=== PATIENT | female | born 1930 | race Caucasian/White ===

== ENCOUNTER 2016-08-22 05:02 | Inpatient (IN) | payer MEDICARE, OTHER ==
[~2016-08-22] VITALS: Ht 160 cm; Wt 40.5 kg
[2016-08-22 05:49] LABS: INR 0.97; PROTIME 12.9 Sec (12.2-14.2)
[2016-08-22 05:50] LABS: PARTIAL THROMBOPLASTIN TIME 24.5 Sec (25.0-35.0)
[2016-08-22 05:52] LABS: POTASSIUM 3.9 mmol/L (3.5-5.1)
[2016-08-22 05:54] LABS: ALBUMIN/GLOBULIN RATIO 1.53; BASOPHILS % 0.6 % (0.0-2.0); BILIRUBIN,INDIRECT 0.1 mg/dl (0-1.1); BILIRUBIN,TOTAL 0.1 mg/dl (0.2-1.3); CREATININE 1.06 mg/dl (0.44-1.00); EOSINOPHILS # 0.2 10^3/ul (0.0-0.5); EOSINOPHILS % 4.2 % (0.0-7.0); HEMATOCRIT 30.4 % (37.0-47.0); HEMOGLOBIN 10.1 g/dl (12.0-16.0); LYMPHOCYTES # 0.9 10^3/ul (0.8-2.9); LYMPHOCYTES % 19.9 % (15.0-51.0); MEAN CORPUSCULAR HEMOGLOBIN 33.9 pg (29.0-33.0); MEAN CORPUSCULAR HGB CONC 33.4 g/dl (32.0-37.0); MEAN CORPUSCULAR VOLUME 101.6 fl (82.0-101.0); MEAN PLATELET VOLUME 9.7 fl (7.4-10.4); MONOCYTE # 0.2 10^3/ul (0.3-0.9); MONOCYTES % 5.7 % (0.0-11.0); NEUTROPHILS % 69.6 % (39.0-77.0); PLATELET COUNT 155 10^3/UL (140-440); RED BLOOD COUNT 2.99 10^6/ul (4.20-5.40); RED CELL DISTRIBUTION WIDTH 13.4 % (11.5-14.5); TOTAL PROTEIN 6.6 g/dl (6.1-8.1); UNCORRECTED WBC 4.3 10^3/ul (4.8-10.8); WHITE BLOOD COUNT 4.3 10^3/ul (4.8-10.8)
[2016-08-22 05:55] LABS: CALCIUM 10.2 mg/dl (8.4-10.2)
[2016-08-22 06:03] LABS: CK-MB 1.34 ng/ml (0.0-2.4)
[2016-08-22 06:04] LABS: CONDITION 1; LH ANALYZER COMMENTS 1
[2016-08-22 06:06] LABS: TROPONIN-I 0.017 ng/ml (0.00-0.12)
[2016-08-22 06:07] LABS: TROPONIN-I 0.019 ng/ml (0.00-0.12)
--- NOTE | 2016-08-22 06:16 | RADRPT ---
PROCEDURE: XR Chest. CLINICAL INDICATION: Chest pain TECHNIQUE: An AP view of the chest was obtained. COMPARISON: No prior exam is available for comparison. FINDINGS: There is prominence of the interstitial markings. No pleural effusion or pneumothorax is seen. Th e cardiomediastinal silhouette is mildly enlarged . Calcifications are seen within the aortic arch. The osseous structures demonstrate senescent changes. IMPRESSION: 1. Mild prominence of the interstitial markings, may reflect mild underlying interstitial edema or chronic lung changes. 2. Mild cardiomegaly and aortic atherosclerosis. RPTAT: HH .Radha Lewis MD, MD Date Time Electronically viewed and signed by .Radha Lewis MD, on 08/22/2016 06:15 .G/
[2016-08-22 08:17] LABS: ADD UMIC YES; URINE BILIRUBIN (Dip) NEGATIVE (NEGATIVE); URINE BLOOD (Dip) NEGATIVE (NEGATIVE); URINE COLOR LT. YELLOW (YELLOW); URINE GLUCOSE (Dip) NEGATIVE (NEGATIVE); URINE KETONES (Dip) TRACE (NEGATIVE); URINE LEUKOCYTE ESTERASE (Dip) 1+ (NEGATIVE); URINE NITRITE (Dip) NEGATIVE (NEGATIVE); URINE TOTAL PROTEIN (Dip) NEGATIVE (NEGATIVE); URINE UROBILINOGEN (Dip) 0.2 E.U./dL (0.1-1.0)
[2016-08-22] MEDS ORDERED: ALBU8.5H3 INH (08:18)
[2016-08-22] MEDS ORDERED: AZEL23SP NASAL (08:19)
[2016-08-22] MEDS ORDERED: CHOL100062 PO (08:19)
[2016-08-22] MEDS ORDERED: LORA10TA3 PO (08:20)
[2016-08-22] MEDS ORDERED: MULTI PO (08:20)
[2016-08-22] MEDS ORDERED: NIT4 SL (08:20)
[2016-08-22] MEDS ORDERED: HYDR12.58 PO (08:20)
[2016-08-22] MEDS ORDERED: SIMV40TA2 PO (08:21)
[2016-08-22 08:22] LABS: BARBITURATES NEGATIVE (NEGATIVE); BENZODIAZEPINES NEGATIVE (NEGATIVE); CANNABINOIDS NEGATIVE (NEGATIVE); COCAINE NEGATIVE (NEGATIVE)
[2016-08-22] MEDS ORDERED: LOSA100T7 PO (08:22)
[2016-08-22] MEDS ORDERED: OMEP40CA6 PO (08:22)
[2016-08-22] MEDS ORDERED: METO-448 PO (08:22)
[2016-08-22] MEDS ORDERED: DOCU100C26 PO (08:23)
[2016-08-22] MEDS ORDERED: CALC1CAP9 PO (08:23)
[2016-08-22 08:24] LABS: OPIATES POSITIVE (NEGATIVE)
[2016-08-22 08:24] LABS: ETHANOL < 10.0 mg/dl
[2016-08-22] MEDS ORDERED: ASPI1CPM8 PO (08:24)
[2016-08-22] MEDS ORDERED: ASPI-664 PO (08:24)
[2016-08-22 08:31] LABS: SQUAMOUS EPITHELIAL CELL,UR FEW; URINE RBCS NONE SEEN /HPF (0)
[2016-08-22] MEDS ORDERED: ACET1TAB40 PO (08:31)
[2016-08-22 08:40] LABS: T3 UPTAKE 36.6 % (23.5-40.5)
[2016-08-22] MEDS ORDERED: LORAZEPAM 2 MG INJ IV ONE (09:00)
--- NOTE | 2016-08-22 09:09 | ERA ---
ER Documentation Chief Complaint Date/Time DATE: 08/22/16 TIME: 09:04 Chief Complaint bib ra c/p cp after conflict from her apartment mgr. has multiple complaint HPI 86-year-old female who presents for unknown reasons. At triage it was reported that she had chest pain after a conflict with her manager pacu. However the patient does not mention this. The patient arrived prior to my shift started and the charge nurse at the time noted that the patient was confused and perhaps not caring for herself. On my exam the patient states that she is here because she fell approximately 1 week ago. She occasionally tells me that she tripped and fell but then also tells me that she passed out. The patient also states "I just called the police because I realize that there is somebody watching me and listening to me with a device in my bathroom ". The patient is also telling me "I need to be released immediately because I have to submit the paperwork to receive the monetary prize that I have already won and that is my right ". It is difficult to provide any further history given the patient's age and confusing history. ROS All systems reviewed and are negative except as per history of present illness. Medications Home Meds Reported Medications Acetaminophen with Codeine (Acetaminophen-Cod #3 Tablet) 1 Each Tablet, 1 TAB PO Q4 Y for PAIN, #7 TAB TYLENOL #4 08/22/16 Aspirin-Dipyridamole* (Aggrenox*) 25-200 Mg Cpmp.12hr, 1 CAP PO BID, CAP 08/22/16 Aspirin (Low Dose Aspirin) 81 Mg Tablet., 81 MG PO DAILY, #30 TAB 08/22/16 Calcium Carbonate-Vitamin D3 (Calcium 600 + D Softgel) 1 Each Capsule, 1 CAP PO DAILY, CAP 08/22/16 Docusate Sodium* (Doc-Q-Lace*) 100 Mg Capsule, 100 MG PO BID Y for CONSTIPATION , CAP 08/22/16 Losartan Potassium* (Losartan Potassium*) 100 Mg Tablet, 100 MG PO DAILY, TAB 08/22/16 Metoprolol Tartrate* (Lopressor*) 25 Mg Tab, 25 MG PO BID, #60 TAB 08/22/16 Omeprazole* (Omeprazole*) 40 Mg Capsule., 40 MG PO DAILY, #30 CAP 08/22/16 Simvastatin* (Zocor*) 40 Mg Tablet, 40 MG PO QHS, #30 TAB 08/22/16 Nitroglycerin* (Nitrostat*) 0.4 Mg Tab.subl, 0.4 MG SL Q5MIN Y for CHEST PAIN, BOTTLE 08/22/16 Multivitamins* (Theragran*) 1 Tab Tab, 1 TAB PO DAILY, TAB 08/22/16 Loratadine* (Loratadine*) 10 Mg Tablet, 10 MG PO DAILY, #30 TAB 08/22/16 Hydrochlorothiazide* (Hydrochlorothiazide*) 12.5 Mg Tablet, 12.5 MG PO DAILY, # 30 TAB 08/22/16 Cholecalciferol* (Vitamin D3*) 1,000 Unit Tablet, 2000 UNIT PO DAILY, TAB 08/22/16 Azelastine/Fluticasone (DYMISTA NASAL SPRAY) 23 Gm [place].pump, 1 SPRAY NASAL BID , #1 BOTTLE TO EACH NOSTRIL 08/22/16 Albuterol Sulfate* (Proair HFA*) 8.5 Gm Hfa.aer.ad, 2 PUFF INH Q4H Y for WHEEZING AND SOB, #1 INHALER 08/22/16 Allergies Allergies: Coded Allergies: No Known Allergy (Unverified , 08/22/16) PMhx/Soc History of Surgery: Yes (Scalp injury) Anesthesia Reaction: No Hx Neurological Disorder: Yes (Dementia) Hx Respiratory Disorders: No Hx Cardiac Disorders: Yes ("heart problem") Hx Psychiatric Problems: No Hx Miscellaneous Medical Probl: Yes (Cancer) Hx Alcohol Use: No Hx Substance Use: No Hx Tobacco Use: No Smoking Status: Never smoker FmHx Family History: No diabetes Physical Exam Vitals Vital Signs Date Time Temp Pulse Resp B/P Pulse Ox O2 Delivery O2 Flow Rate FiO2 08/22/16 12:00 72 16 142/66 100 08/22/16 11:00 98 18 131/68 99 Room Air 08/22/16 08:00 89 22 164/80 96 Nasal Cannula 2.0 08/22/16 06:34 104 22 137/85 100 Nasal Cannula 2.0 08/22/16 05:27 Nasal Cannula 2 08/22/16 05:10 98.7 85 18 136/85 97 Physical Exam General: Elderly cachectic female Head: Old ecchymoses to bilateral midface Eyes: Pupils equally reactive, EOM intact ENT: Moist mucous membranes Neck: Supple, no lymphadenopathy, no midline tenderness deformities or step-offs , full active and passive range of motion Respiratory: Lungs clear bilaterally, no distress Cardiovascular: RRR, no murmurs, rubs, or gallops Abdominal: Soft, non-tender, non-distended, no peritoneal signs : Deferred MSK: No edema, no unilateral swelling, 5/5 strength Neurologic: Alert and oriented to person and place though somewhat confused to events, moving all extremities, normal speech, no focal weakness, no cerebellar signs Skin: No rash Psych: Paranoid delusions Result Diagram: 08/22/1652408/22/16 05 Results 24 hrs Laboratory Tests Test 08/22/16 05:25 08/22/16 08:00 Activated Partial Thromboplast Time 24.5Sec Alanine Aminotransferase (ALT/SGPT) 34IU/L Albumin 4.0g/dl Albumin/Globulin Ratio 1.53 Alkaline Phosphatase 83IU/L Anion Gap 16 Aspartate Amino Transf (AST/SGOT) 30IU/L B-Type Natriuretic Peptide 993PG/ML Basophils # 0.010^3/ul Basophils % 0.6% Blood Morphology Comment Blood Urea Nitrogen 31mg/dl Calcium Level 10.2mg/dl Carbon Dioxide Level 29mmol/L Chloride Level 103mmol/L Creatine Kinase 74IU/L Creatine Kinase Index 1.8 Creatinine 1.06mg/dl Creatinine Kinase MB (Mass) 1.34ng/ml Direct Bilirubin 0.00mg/dl Eosinophils # 0.210^3/ul Eosinophils % 4.2% Ethyl Alcohol Level < 10.0mg/dl Free Thyroxine Index 3.44ug/ml Globulin 2.60g/dl Glucose Level 107mg/dl Hematocrit 30.4% Hemoglobin 10.1g/dl INR International Normalized Ratio 0.97 Indirect Bilirubin 0.1mg/dl Lymphocytes # 0.910^3/ul Lymphocytes % 19.9% Mean Corpuscular Hemoglobin 33.9pg Mean Corpuscular Hemoglobin Concent 33.4g/dl Mean Corpuscular Volume 101.6fl Mean Platelet Volume 9.7fl Monocytes # 0.210^3/ul Monocytes % 5.7% Neutrophils # 3.010^3/ul Neutrophils % 69.6% Nucleated Red Blood Cells # 0.010^3/ul Nucleated Red Blood Cells % 0.0/100WBC Platelet Count 68740^3/UL Potassium Level 3.9mmol/L Prothrombin Time 12.9Sec Prothrombin Time Ratio 1.0 Red Blood Count 2.9910^6/ul Red Cell Distribution Width 13.4% Sodium Level 144mmol/L Thyroxine (T4) 9.4ug/dl Total Bilirubin 0.1mg/dl Total Protein 6.6g/dl Triiodothyronine (T3) Uptake 36.6% Troponin I 0.017ng/ml White Blood Count 4.310^3/ul Urine Amphetamines Screen NEGATIVE Urine Barbiturates NEGATIVE Urine Benzodiazepines Screen NEGATIVE Urine Bilirubin NEGATIVE Urine Cannabinoids NEGATIVE Urine Clarity CLEAR Urine Cocaine Screen NEGATIVE Urine Color LT. YELLOW Urine Glucose NEGATIVE% Urine Hemoglobin NEGATIVE Urine Ketones TRACE Urine Leukocyte Esterase 1+ Urine Microscopic RBC NONE SEEN/HPF Urine Microscopic WBC 5-10/HPF Urine Nitrite NEGATIVE Urine Opiates Screen POSITIVE Urine Specific [place] 1.015 Urine Squamous Epithelial Cells FEW Urine Total Protein NEGATIVE Urine Urobilinogen 0.2 E.U./dL Urine pH 5.5 Current Medications Medications (Trade) Dose Ordered Sig/Brianna Route PRN Reason Start Time Stop Time Status Last Admin Dose Admin Lorazepam (Ativan) 0.5 mg ONCE ONCE IV 08/22/16 09:00 08/22/16 09:01 DC 08/22/16 09:22 Haloperidol (Haldol) 2 mg ONCE ONCE IV 08/22/16 09:30 08/22/16 09:31 DC 08/22/16 09:22 Diphtheria/ Tetanus/Acell Pertussis (Adacel) 0.5 ml ONCE ONCE IM* 08/22/16 12:00 08/22/16 12:01 DC 08/22/16 12:48 Ondansetron HCl (Zofran Inj) 4 mg BRIDGE ORDER PRN IV NAUSEA AND/OR VOMITING 08/22/16 13:00 08/23/16 12:59 Acetaminophen (Tylenol Tab) 650 mg ER BRIDGE PRN PO MILD PAIN/FEVER 08/22/16 13:00 08/23/16 12:59 Procedures/MDM EKG, MONITORS, & DIAGNOSTIC IMAGING: EKG: I reviewed and interpreted a 12-lead EKG. Rhythm: Normal sinus rhythm Ectopy: None Intervals: No abnormalities ST segments: No elevations or depressions T waves: No contiguous inversions Chest x-ray: I reviewed and interpreted a 1 view of the chest Mediastinum: No enlargement Cardiac silhouette: No cardiomegaly Airspace: Clear lung gordon bilaterally without evidence of pneumothorax Bones: No evidence of fracture CT brain: No acute intracranial process Repeat CT brain: Hematoma but no acute intracranial process CT cervical spine: Pending CT facial bone: Pending Restrains: Indication: Agitation, flight risk, no capacity Location: 4 point restraints to bilateral upper and lower extremities The patient was given verbal warnings that if the behavior continued the patient would require physical and/or chemical restraints. Despite verbal warnings the behavior continued and restraints were applied. The patient had a bedside reevaluation within 50 minutes of placement of restraints. Patient remained stable. LAB INTERPRETATION: No significant leukocytosis MEDICAL DECISION MAKING: It is unclear why the patient is truly here. However after my assessment it appears that the patient may have undiagnosed dementia. The patient is living alone and clearly falling she has old evidence of trauma. The patient also has paranoid delusions. I am concerned that the patient is not able to care for herself. A broad workup was initiated to evaluate for possible traumatic injury , urinary tract infection or acute coronary syndrome. Regardless, I do not believe that the patient is able to care for herself, she does not have insight she does not have social resources. I also do not believe that the patient has capacity. ER COURSE: During the patient's ER course she continued to escalate. The patient was threatening to leave. I had a prolonged conversation with the patient with the nurse at the bedside. The patient continued to exhibit signs and symptoms consistent with dementia and inability to understand risks benefits and alternatives. She has poor insight and continues to repeat delusions of persecution and delusions of grandeur. I do not believe the patient has capacity and she is requiring restraints and gentle sedation. Given her age a gentle dose of Haldol 2 mg IV as well as Ativan 0.5 mg will be provided for anxiolysis and agitation. The patient also additionally requires CT imaging that cannot be obtained currently with her state of agitation. ER update: It appears that the patient somehow stood up and fell at bedside. An incident report was filed. The patient sustained a right frontal forehead hematoma without loss of consciousness. Wound care was provided and tetanus was updated. No indication for laceration repair. CT brain was obtained that is negative. The patient continues to be a fall risk. The patient is still pending CT imaging of the facial bones and cervical spine. Again no midline tenderness no indication for mobilization at this time. The patient will be endorsed to the oncoming ER provider to follow-up on the studies. Regardless, the patient requires inpatient hospitalization. I kept the patient and/or family informed of laboratory and diagnostic imaging results throughout the emergency room course. DISPOSITION PLAN: Medical surgical admission for frequent falls, placement CONSULTATION: Accepting care team and consultations: I discussed the current laboratory data, diagnostic imaging and emergency care provided. Admitting team: Dr. Villavicencio Admitting team indication: Insurance directed Departure Diagnosis: Primary Impression: Frequent falls Additional Impressions: Acute encephalopathy Delusion of persecution Closed head injury Qualified Code: S09.90XA - Closed head injury, initial encounter Condition: Stable MEHRAN KHALIL MD Aug 22, 2016 09:09
[2016-08-22] MEDS ORDERED: HALOPERIDOL 5 MG INJ IV ONE (09:30)
--- NOTE | 2016-08-22 10:26 | RADRPT ---
PROCEDURE: CT Brain without. CLINICAL INDICATION: Altered mental status. TECHNIQUE: A CT of the brain was performed on multidetector high-resolution CT scanner utilizing a xial sections from the skull base through the vertex without contrast. The scan was reviewed in sof t tissue brain and high frequency resolution bone algorithm windows. Images were reviewed on a high -resolution PACS workstation. One or more the following does reduction techniques were utilized: Aut omated exposure control, adjustment of the mA/ or kV according to patient's size, or use of iterativ e reconstruction technique. The exam CTDI and the DLP are not provided. COMPARISON: None available. FINDINGS: The ventricles and sulci are mildly to moderately prominent indicative of volume loss. There is no i ntracranial hemorrhage, mass effect or midline shift. No abnormal intra-axial or extra-axial fluid collections are seen. The martinez/white matter differentiation is preserved. There are moderate scattered foci of hypoattenuation in the white matter, which are nonspecific in e tiology but likely reflect chronic small vessel ischemic changes. There are moderate intracranial v ascular calcifications consistent with atherosclerosis. The visualized paranasal sinuses are essenti ally clear. IMPRESSION: 1. No acute intracranial hemorrhage, transcortical infarction or mass effect. 2. Moderate intracranial atherosclerosis and chronic small vessel ischemic changes. 3. Mild to moderate generalized cerebral volume loss. RPTAT: HH .Maxime Aldana MD, MD Date Time Electronically viewed and signed by .Maxime Aldana MD, MD on 08/22/2016 10:26 .N/
[2016-08-22] MEDS ORDERED: DIPHTH/TET/ACEL PERTUSS (ADULT) 0.5 ML VIAL IM* ONE (12:00)
--- NOTE | 2016-08-22 12:19 | RADRPT ---
PROCEDURE: CT brain without contrast CLINICAL INDICATION: Fall with head injury TECHNIQUE: CT of the brain without contrast performed on a multidetector CT scanner. One or more o f the following dose reduction techniques were used: Automated exposure control, adjustment in mA an d / or kV according to patient size, use of iterative reconstructive technique. Radiation doses mathieu vailable. COMPARISON: 08/22/2016 FINDINGS: There is now right forehead/frontal scalp swelling. No underlying fracture or intracranial hemorrha ge is identified. No extra-axial fluid collection is seen. There is no mass effect. No midline shift is identified. Ventricles and sulci are mild to moderately enlarged compatible with volume loss. There are mild to moderate areas of hypodensity in the periventricular - deep white matter which are nonspecific but suggestive of chronic small vessel ischemic changes. Wilcox-white differentiation is preserved. Atherosclerotic calcifications of the intracranial internal carotid arteries are noted. Osseous structures are unremarkable. Mastoid air cells and imaged paranasal sinuses grossly clear. IMPRESSION: 1. Interval right forehead/frontal scalp swelling, without underlying fracture or evidence of acute intracranial pathology. 2. Mild to moderate volume loss, with chronic small vessel ischemic changes. RPTAT: TT .Rashard Cruz MD, MD Date Time Electronically viewed and signed by .Rashard Cruz MD, MD on 08/22/2016 12:18 .O/
[2016-08-22] MEDS ORDERED: ONDANSETRON 4 MG INJ IV PRN ×2 (13:00→16:30)
[2016-08-22] MEDS ORDERED: ACETAMINOPHEN 325 MG TAB PO PRN ×2 (13:00→16:30)
[2016-08-22] MEDS ORDERED: hydrALAzine 20 MG INJ IV PRN (16:30)
[2016-08-22] MEDS ORDERED: BISACODYL (EC) 5 MG TAB PO PRN (16:30)
[2016-08-22] MEDS ORDERED: LORAZEPAM 2 MG INJ IV PRN (16:30)
[2016-08-22] MEDS ORDERED: MAGNESIUM HYDROXIDE 30ML CUP PO PRN (16:30)
[2016-08-22] MEDS ORDERED: NACL 0.9% 3 ML SYG IV SCH (16:30)
[2016-08-22] MEDS ORDERED: ALBUTEROL 0.5% (NEB) 2.5 MG/0.5 ML AMP HHN PRN (17:00)
--- NOTE | 2016-08-22 18:17 | HP ---
DATE OF ADMISSION: 08/22/2016 TIME OF EVALUATION: 1530 hours. REASON FOR ADMISSION: Brought in by paramedics because the patient had chest pain after reported argument with her client program manager. HISTORY OF PRESENT ILLNESS: This is an 86-year-old female patient with past medical history of essential hypertension, dyslipidemia, who possibly has underlying dementia, who was brought in by paramedics. As per report, the patient had chest pain after she had a conflict with her client program manager. The patient was inconsistent with her complaints. The patient verbalized that she had chest pain at some point of time. The patient also verbalized that she had a fall at home. The patient verbalized that she passed out versus she tripped and fell down. The patient also verbalized that "I just called the police because there is somebody watching me and listening to me with a device in my bathroom." The patient also was verbalizing "I need to be released immediately because I have to submit the paperwork to receive the monitory prize that I have already won and that's my right." The patient was awake, alert and oriented x3 with periods of confusion. The patient had an initial brain CT scan done at 6:28 a.m. in the morning that was negative for any acute intracranial findings. The patient had a fall in the emergency room. The patient had a repeat brain CT scan done at 11:44 a.m. that was negative for any intracranial findings, but interval development of right forehead/frontal scalp swelling without underlying fracture or evidence of acute intracranial pathology. The patient's chest x-ray showed mild prominence of interstitial markings and mild cardiomegaly and aortic atherosclerosis. The patient's initial set of troponins was negative. The patient's creatinine kinase levels were within normal limits. The patient was noticed to have some macrocytic anemia. It was felt that the patient has been having paranoid delusions. The patient also felt that she is unable to take care of herself. The patient verbalized that she does not have any immediate family members available. The patient verbalized that she has an aunt who resides outside the state, but she does not want to bother her for anything. PAST MEDICAL HISTORY: Essential hypertension, dyslipidemia, possible dementia. PAST SURGICAL HISTORY: Unknown. HOME MEDICATIONS: 1. Loratadine 10 mg p.o. daily. 2. ProAir HFA 2 puffs inhaled q.4h. p.r.n. dyspnea. 3. Aggrenox 1 capsule p.o. b.i.d. 4. Losartan 100 mg p.o. daily. 5. Metoprolol 25 mg p.o. b.i.d. 6. Simvastatin 40 mg p.o. at bedtime. 7. Calcium carbonate 1 capsule p.o. daily. 8. Hydrochlorothiazide 12.5 mg p.o. daily. 9. Vitamin D3, 2000 units p.o. daily. 10. Multivitamins 1 tablet p.o. daily. ALLERGIES: NO KNOWN DRUG ALLERGIES. SOCIAL HISTORY: The patient lives in an apartment by herself. Denies any history of tobacco, alcohol or illicit drug use. The patient verbalized that she usually gets her follow up at the [facility]. However, she was unable to tell me when she last visited the [facility]. REVIEW OF SYSTEMS: Unable to obtain any meaningful review of systems because of the patient's alteration in mental status. PHYSICAL EXAMINATION: VITAL SIGNS: Temperature 98.7, pulse 72, respiratory rate 16, blood pressure 142/66, oxygen saturation 100% on room air. GENERAL: This is a thin, frail-looking female lying in bed in no apparent distress. HEENT: Head normocephalic. Right scalp dressing above the right eyebrow. Right periorbital ecchymosis. ENT: Nasal septum is midline. Oral mucosa is dry, poor dentition. NECK: Supple. No JVD noticed. RESPIRATORY: Bilaterally clear to auscultation. No adventitious breath sounds heard. No use of accessory muscles of respiration. CARDIAC: Regular rate and rhythm. Occasional skipped beats. ABDOMEN: Soft, nontender and nondistended. Bowel sounds positive in all 4 quadrants. GENITOURINARY: Deferred. EXTREMITIES: No cyanosis, no clubbing, no edema. Peripheral pulses are palpable. NEUROLOGIC: The patient is awake and alert. The patient is oriented x3. The patient has periods of forgetfulness. The patient moves all 4 extremities. PSYCHIATRIC: Paranoid and grandiose delusions. Labile affect. LABORATORY AND DIAGNOSTIC DATA: WBC 4.3, hemoglobin 10.1, hematocrit 30.4, platelet count 155. Sodium 144, potassium 3.9, chloride 103, carbon dioxide 20 , anion gap 16, BUN 13, creatinine 1.06, glucose 107, calcium 10.2. Troponin 0.017. BNP 993. PT 12.9, INR 0.97, APTT 24.5. Urine drug toxicology positive for opioids. Urinalysis: Urine ketones trace, urine nitrites negative, urine leukocyte esterase 1+, urine microscopic WBC 5 to 10. Chest x-ray: Mild prominence of interstitial markings that may reflect mild underlying interstitial edema or chronic lung changes with mild cardiomegaly and aortic atherosclerosis. Repeat brain scan on 08/22/2016: Interval right forehead/frontal scalp swelling without underlying fracture or evidence of acute intracranial pathology. Mild to moderate volume loss with chronic small vessel ischemic changes. IMPRESSION: This is an 86-year-old female who was brought to the emergency room by paramedics because of vague complaints, who was assessed to have poor self-care ability and is at high-risk for discharge home, who will be admitted here for further treatment and evaluation. ASSESSMENT AND PLAN: 1. Acute encephalopathy. Etiology unclear. It is unclear whether the patient has underlying dementia. Acute delirium could also be a cause of the patient's underlying behavior. The patient will be ruled out for any underlying organic causes including any infectious process. The patient's brain CT scan has been negative for any acute findings. The patient will be closely monitored. The patient will be placed on fall precautions. The patient will have a 1:[address] We will avoid any blood thinners at this time. 2. Reported chest pain. The patient will be ruled out for any underlying acute coronary syndrome. The patient's serial troponins are negative so far. The patient will not be started on any aspirin because of the recent fall. A 2D echocardiogram will be obtained to evaluate the left ventricular ejection fraction. 3. Essential hypertension. The patient's home antihypertensives will be resumed. The patient will also be started on p.r.n. antihypertensives for any systolic blood pressure greater than 160 mmHg. 4. Dyslipidemia. The patient will be resumed on her statin. A fasting lipid panel will be obtained. 5. Macrocytic anemia. The patient's H and H will be monitored The patient will be transfused as needed. 6. Status post fall. The patient's brain CT scan has been negative for any acute intracranial findings other than a scalp hematoma. The patient is being transferred to [facility] for further imaging because technical difficulties at [facility]. Any anticoagulation will be put on hold at this time. Plan. The patient will be admitted to inpatient setting. The patient will be started on DVT prophylaxis with bilateral sequential compression devices. The patient will be started on gastrointestinal prophylaxis. The patient will remain a full code. Activities will be with assistance. The patient will have 1:[address] Physical therapy evaluation will be ordered. oil well services superintendent consult will be ordered. The rest of the patient's management will be based on the clinical course and the results of diagnostic studies. Based on the patient's clinical presentation, she most probably requires at least 2-midnight's stay for further management and evaluation of her clinical presentation. The case and management of this patient was fully discussed with Dr. Reyes. Approximately 60 minutes was spent on the history and physical of this patient. OSCAR RYEES MD, AM/CYRUS Conf#: [id number] DID#: [id number] MTDD
[2016-08-22 22:07] LABS: CK-MB 1.15 ng/ml (0.0-2.4)
[2016-08-22] MEDS: METOPROLOL 25 MG TAB PO SCH (22:09)
[2016-08-22] MEDS: ATORVASTATIN 20 MG TAB PO SCH (22:09)
[2016-08-22] MEDS: FAMOTIDINE 20 MG TAB PO SCH (22:09)
[2016-08-22 22:10] LABS: TROPONIN-I 0.026 ng/ml (0.00-0.12)
--- NOTE | 2016-08-22 23:00 | EN ---
Date/Time of Note Date/Time of Note DATE: 08/22/16 TIME: 22:57 ER Progress Note The CTA of the neck is negative for any vascular injury. Facial bone CT was not done I discussed the patient with the on-call hospitalist Dr Lynch who was aware of the CTA findings, he accepted the patient. He will order for the facial bone CT in the morning Observation Note: Time: 4hours Family Hx: No Hypertension Evaluation: Multiple exams showed improving symptoms and no evidence of deterioration CRISTINO GARRIDO MD Aug 22, 2016 23:00
[2016-08-23 00:07] VITALS: Ht 160 cm; Wt 40.5 kg
[2016-08-23 00:27] VITALS: BP 153/71; RESP 20
[2016-08-23 06:17] LABS: ALBUMIN 3.4 g/dl (3.3-4.9)
[2016-08-23 06:18] LABS: POTASSIUM 3.4 mmol/L (3.5-5.1)
[2016-08-23 06:20] LABS: ALBUMIN/GLOBULIN RATIO 1.25; BILIRUBIN,INDIRECT 0.1 mg/dl (0-1.1); BILIRUBIN,TOTAL 0.1 mg/dl (0.2-1.3); CREATININE 0.91 mg/dl (0.44-1.00); TOTAL PROTEIN 6.1 g/dl (6.1-8.1)
[2016-08-23 06:21] LABS: CALCIUM 9.5 mg/dl (8.4-10.2)
[2016-08-23 06:22] LABS: CHOL/HDL RATIO 3.1 RATIO; MAGNESIUM 1.8 mg/dl (1.7-2.5)
[2016-08-23 07:29] VITALS: BP 173/74; RESP 18
[2016-08-23] MEDS: CHOLECALCIFEROL 1,000 UNIT TAB PO SCH (08:20)
[2016-08-23] MEDS: LOSARTAN 50 MG TAB PO SCH (08:20)
[2016-08-23] MEDS: MULTIVITAMINS THERAPEUTIC TAB PO SCH (08:20)
[2016-08-23] MEDS: HYDROCHLOROTHIAZIDE 12.5 MG CAP PO SCH (08:21)
[2016-08-23] MEDS: METOPROLOL 25 MG TAB PO SCH ×2 (08:27→20:28)
[2016-08-23 08:49] LABS: IRON 50 ug/dl (35-150)
[2016-08-23 08:59] LABS: TOTAL IRON BINDING CAPACITY 193 ug/dl (241-421)
[2016-08-23 09:30] VITALS: BP 142/69; PULSE 78
[2016-08-23 09:31] LABS: BASOPHILS % 0.7 % (0.0-2.0); EOSINOPHILS # 0.2 10^3/ul (0.0-0.5); EOSINOPHILS % 3.9 % (0.0-7.0); HEMATOCRIT 30.5 % (37.0-47.0); HEMOGLOBIN 10.3 g/dl (12.0-16.0); LYMPHOCYTES # 0.8 10^3/ul (0.8-2.9); LYMPHOCYTES % 14.3 % (15.0-51.0); MEAN CORPUSCULAR HEMOGLOBIN 34.1 pg (29.0-33.0); MEAN CORPUSCULAR HGB CONC 33.7 g/dl (32.0-37.0); MEAN CORPUSCULAR VOLUME 101.3 fl (82.0-101.0); MONOCYTE # 0.4 10^3/ul (0.3-0.9); NEUTROPHIL # 4.2 10^3/ul (1.6-7.5); NEUTROPHILS % 74.1 % (39.0-77.0); PLATELET COUNT 141 10^3/UL (140-440); RED BLOOD COUNT 3.02 10^6/ul (4.20-5.40); RED CELL DISTRIBUTION WIDTH 13.3 % (11.5-14.5); UNCORRECTED WBC 5.7 10^3/ul (4.8-10.8); WHITE BLOOD COUNT 5.7 10^3/ul (4.8-10.8)
[2016-08-23 09:32] LABS: CONDITION 1; LH ANALYZER COMMENTS 1
[2016-08-23] MEDS ORDERED: hydrALAzine 20 MG INJ IV PRN (11:30)
--- NOTE | 2016-08-23 11:44 | PN ---
DATE: 08/23/2016 SUBJECTIVE DATA: The patient has a 1:1 analysis or research safety inspector at the bedside. The patient remains awake and alert. Complains of back pain. Denies any chest pain. The patient is still talking about the contest that she is in and she wants to go home. OBJECTIVE DATA: VITAL SIGNS: Temperature 98.5, pulse rate 78, respiratory rate 18, blood pressure 123/74, oxygen saturation 100% on room air. GENERAL: This is a thin, frail-looking female lying in bed in no apparent distress. HEENT: Head normocephalic. There is a right scalp dressing above the right eyebrow. There is periorbital ecchymosis. ENT: Nasal septum is midline. Oral mucosa is dry. Poor dentition. NECK: Supple. No JVD noticed. RESPIRATORY: Bilaterally clear to auscultation. No adventitious breath sounds. No use of accessory muscles of respiration. CARDIAC: Regular rate and rhythm. No murmurs heard. ABDOMEN: Soft, nontender and nondistended. Bowel sounds positive in all 4 quadrants. GENITOURINARY: Deferred. EXTREMITIES: No cyanosis, no clubbing, no edema. Peripheral pulses are palpable. NEUROLOGIC: The patient is awake and alert. The patient is oriented x3. The patient has periods of forgetfulness. The patient moves all 4 extremities. PSYCHIATRIC: Delusions of paranoia and grandeur. LABORATORY AND DIAGNOSTIC DATA: WBC 5.7, hemoglobin 10.3, hematocrit 30.5, platelet count 141. Sodium 144, potassium 3.4, chloride 103, carbon dioxide 30 , anion gap of 14, BUN 25, creatinine 0.91, glucose 80, calcium 9.5, magnesium 1.8. ASSESSMENT AND PLAN: 1. Acute encephalopathy in a patient with possible underlying dementia. The patient continues to have periods of confusion. The patient will be maintained on 1:1 supervision. We will obtain a physical therapy evaluation. The patient' s brain imaging and cervical spine imaging have been negative. 2. Reported chest pain. Serial troponins negative. Pending 2-D echocardiogram. Aspirin on hold because of recent scalp trauma. 3. Essential hypertension. Continue antihypertensives including p.r.n. antihypertensives for systolic blood pressure readings greater than 160 mmHg. 4. Dyslipidemia. Continue statins. Fasting lipid panel satisfactory. 5. Macrocytic anemia. Monitor H&H closely. 6. Status post fall. Brain imaging negative. Pending PT evaluation. 7. 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 Etiology unclear. Monitor closely. 8. Fluid, electrolytes and nutrition. Continue regular diet. 9. Deep venous thrombosis prophylaxis with bilateral sequential compression devices. 10. Gastrointestinal prophylaxis: Histamine 2 receptor blockers. PLAN: Continue 1:1 sitter. The patient is not a safe candidate to be discharged home. The patient lives by herself. The patient does not have the capability to make decisions on her own. The patient has no immediate family members available. baby formula worker on the case. The case discussed with Dr. Reyes. OSCAR REYES MD, AM/CYRUS Conf#: [id number] DID#: [id number] MTDD
[2016-08-23] MEDS ORDERED: POTASSIUM CHLORIDE 30 MEQ in DEXTROSE 5% 250 ML IVPB ONE (12:30)
[2016-08-23] MEDS ORDERED: SOD CHLORIDE 0.9% 100 ML ONE (14:07)
[2016-08-23] MEDS ORDERED: IODIXANOL LOCM 100 ML BTL ONE (14:07)
--- NOTE | 2016-08-23 14:39 | RADRPT ---
PROCEDURE: CT Cervical Spine without contrast. CLINICAL INDICATION: pain TECHNIQUE: A CT of the cervical spine was performed on a multidetector CT scanner utilizing thin s ection axial images from the skull base through the thoracic inlet. Sagittal and coronal reformatte d images were made. The CTDIvol is 28mGy and the DLP is 480mGycm. One or more of the following dose reduction techniques were used: Automated exposure control, Adjustment of the mA and/or kV accordin g to patient size, and/or use of iterative reconstruction technique. COMPARISON: No prior studies are available for comparison. FINDINGS: Laminectomy changes at C3 through C6. Left posterior spinal fusion C3-4 with lateral mass screws with solid posterior fusion of the left C 3-4 facets. Right posterior spinal fusion C3-4 through C5-6 with lateral mass screws with near complete posterio r fusion of the right-sided facets. The hardware appears intact. There is interbody fusion of C5-6 and C6-7. Grade 1 anterolisthesis C7-T1 due to facet arthropathy. No acute cervical vertebral fracture. Multilevel degenerative changes. Carotid vascular calcifications. Rotational offset of C1 and C2 may be due to head rotation. C2-3: The disk space is preserved in height. 2 mm disk osteophyte complex without significant bony spinal canal or foraminal narrowing. C3-4: Mild disk height loss. Posterior disk osteophyte complex without significant spinal canal zita nosis. Mild bilateral foraminal narrowing. C4-5: Grade 1 anterolisthesis. Moderate disk height loss. Disk osteophyte complex without evidence of spinal canal stenosis. Mild to moderate right foraminal narrowing. C5-6: Interbody fusion. No significant spinal canal or foraminal narrowing. C6-7: Interbody fusion. Minimal disk osteophyte complex without bony spinal canal stenosis. Moder ate left foraminal narrowing. C7-T1: Grade 1 anterolisthesis. Severe disk height loss. Moderate bilateral foraminal narrowing. IMPRESSION: Postsurgical changes of multilevel laminectomies and posterior spinal fusion as detailed. No acute cervical vertebral fracture. Rotational offset of C1 and C2 may be due to head rotation. Multilevel degenerative changes. RPTAT: AA .Kashmir Smith MD, MD Date Time Electronically viewed and signed by .Kashmir Smith MD, MD on 08/23/2016 14:38 .T/
--- NOTE | 2016-08-23 14:45 | RADRPT ---
PROCEDURE: CTA BRAIN WITH CONTRAST, CTA NECK WITH CONTRAST CLINICAL INDICATION: Neurologic deficit, Stroke COMPARISON: None TECHNIQUE: Helical axial images were obtained through the neck and head with contrast. Oblique sagittal MIP mart ges were obtained through the neck, and coronal and sagittal MIP images were obtained through the br ain. Additional 3D volumetric renderings were created. 100 cc of Isovue 370 was administered intra venously without reported complication. One or more of the following dose reduction techniques were used: Automated exposure control, Adjustment of the mA and/or kV according to patient size, and/or u se of iterative reconstruction technique. DOSE: CTDI = 25/17mGy and the DLP = 643mGy-cm. FINDINGS: CTA OF THE BRAIN: No evidence of a significant stenosis of the bilateral TESS, MCA, or GRADUATE ENGINEER vessels. T he bilateral vertebral and basilar arteries are without significant stenosis or occlusion. No aneury sm is identified. CTA OF THE NECK: Atherosclerotic calcifications of the carotid bulbs without evidence of a hemodynam ically-significant stenosis or vessel dissection of the bilateral common carotid or bilateral finance accounting internship al carotid arteries. The left vertebral artery originates from the aorta, an anatomic variant, whe re there is a high-grade stenosis at the origin. No evidence of an acute vertebral artery dissectio n or complete vessel occlusion. IMPRESSION: CTA HEAD: No significant proximal stenosis or large vessel occlusion. CTA NECK: The left vertebral artery originates from the aorta, an anatomic variant, where there is a high-grad e stenosis at the origin. No evidence of an acute vertebral artery dissection or complete vessel occ lusion. No significant stenosis of the common carotid or internal carotid arteries. RPTAT: AA .Kashmir Smith MD, Date Time Electronically viewed and signed by .Kashmir Smith MD, MD on 08/23/2016 14:45 .T/
--- NOTE | 2016-08-23 14:48 | RADRPT ---
PROCEDURE: CT facial bones CLINICAL INDICATION: Trauma, pain TECHNIQUE: A CT of the facial bones was performed on a multidetector CT scanner utilizing thin axi al images. Sagittal and coronal reconstructions were provided. The CTDIvol is 38 mGy and the DLP i s 670mGy-cm. One or more of the following dose reduction techniques were used: Automated exposure c ontrol, Adjustment of the mA and/or kV according to patient size, and/or use of iterative reconstruc tion technique. COMPARISON: None available. FINDINGS: Comminuted nasal bone fractures. The zygomatic arches and pterygoid plates are intact. The mandible is intact. The temporomandibular joints severely degenerated but remain in anatomic alignment on t he closed mouth view. The orbits are intact. The globes are grossly intact. The paranasal sinuses and mastoid air cells are clear. IMPRESSION: Comminuted nasal bone fractures. RPTAT: AA .Kashmir Smith MD, MD Date Time Electronically viewed and signed by .Kashmir Smith MD, on 08/23/2016 14:48 .T/
--- NOTE | 2016-08-23 14:49 | RADRPT ---
PROCEDURE: CTA BRAIN WITH CONTRAST, CTA NECK WITH CONTRAST CLINICAL INDICATION: Neurologic deficit, Stroke COMPARISON: None TECHNIQUE: Helical axial images were obtained through the neck and head with contrast. Oblique sagittal MIP images were obtained through the neck, and coronal and sagittal MIP images were obtained through the brain. Additional 3D volumetric renderings were created. 100 cc of Isovue 370 was administered intravenously without reported complication. One or more of the following dose reduction techniques were used: Automated exposure control, Adjustment of the mA and/or kV according to patient size, and/or use of iterative reconstruction technique. DOSE: CTDI = 25/17mGy and the DLP = 643mGy-cm. FINDINGS: CTA OF THE BRAIN: No evidence of a significant stenosis of the bilateral TESS, MCA, or OPERATIONAL INTELLIGENCE OFFICER vessels. The bilateral vertebral and basilar arteries are without significant stenosis or occlusion. No aneurysm is identified. CTA OF THE NECK: Atherosclerotic calcifications of the carotid bulbs without evidence of a hemodynamically-significant stenosis or vessel dissection of the bilateral common carotid or bilateral internal carotid arteries. The left vertebral artery originates from the aorta, an anatomic variant, where there is a high-grade stenosis at the origin. No evidence of an acute vertebral artery dissection or complete vessel occlusion. IMPRESSION: CTA HEAD: No significant proximal stenosis or large vessel occlusion. CTA NECK: The left vertebral artery originates from the aorta, an anatomic variant, where there is a high- grade stenosis at the origin. No evidence of an acute vertebral artery dissection or complete vessel occlusion. No significant stenosis of the common carotid or internal carotid arteries. RPTAT: AA .Kashmir Smith MD, MD Date Time Electronically viewed and signed by .Kashmir Smith MD, MD on 08/23/2016 14:49 .T/
--- NOTE | 2016-08-23 16:42 | RADRPT ---
Echocardiogram Report Patient Name: LYNSEY RYDER Gender: Female Date: 1930 Study Date: 23-Aug-2016 Operating Manager: Basil Gibson RDCS Location: [id number] Ref. Physician: OSCAR GUILLEN Quality: Adequate Procedures: Transthoracic echocardiogram with complete 2D, M-Mode, and doppler examination. Indications: Evaluate Left Ventricular function. 2D/M Mode Doppler Measurement Value Normal Ranges Measurement Value Normal Ranges LVIDd 2D 4.2 3.5 - 5.6 cm AV Peak Ayo 1.6 m/sec LVIDs 2D 3.3 2.1 - 4.1 cm AV Peak PG 10.2 mmHg LVPWd 2D 0.9 0.6 - 1.1 cm LVOT Peak Ayo 0.9 m/sec IVSd 2D 1.0 0.6 - 1.1 cm LVOT Peak PG 3.0 mmHg AoR Diam 2D 2.5 2.0 - 3.7 cm MV E Peak Ayo 0.6 m/sec EDV 2D 79.5 cm3 MV A Peak Ayo 1.0 m/sec ESV 2D 35.7 cm3 MV E/A 0.6 LA Dimen 2D 2.9 2.3 - 4.0 cm MV Decel Time 106 msec MV Decel Desha 6 MV E/A 0.6 TR Peak Ayo 2.5 m/sec TR Peak PG 25.4 mmHg RVSP 28.0 mmHg Findings Left Ventricle: Normal left ventricular cavity size. Normal left ventricular wall thickness. Mild left ventricular systolic dysfunction. Ejection fraction is visually estimated at 4045 %. Tissue Doppler/Mitral Doppler indices are consistent with impaired relaxation (Stage I diastolic dysfunction). These segments of the LV are hypokinetic apical septum and mid septum segment. Right Ventricle: Normal right ventricular size. Normal right ventricular systolic function. Left Atrium: The left atrium is normal in size. Right Atrium: The right atrium is normal in size. Mitral Valve: Normal appearance of the mitral valve. Mild mitral annular calcification. Trace mitral regurgitation. Aortic Valve: No significant aortic stenosis or insufficiency. Aortic cusps appear mildly calcified. Tricuspid Valve: Normal appearance of the tricuspid valve. Estimated peak PA systolic pressure 28 mmHg. There is mild tricuspid regurgitation. Pulmonic Valve: Normal pulmonic valve appearance. Pericardium: Normal pericardium with no significant pericardial effusion. Aorta: Normal aortic root. IVC: Normal size and normal respiratory collapse consistent with normal right atrial pressure. Conclusions 1.Normal left ventricular cavity size. Normal left ventricular wall thickness. Mild left ventricular systolic dysfunction. Ejection fraction is visually estimated at 40-45 %. Tissue Doppler/Mitral Doppler indices are consistent with impaired relaxation (Stage I diastolic dysfunction). These segments of the LV are hypokinetic apical septum. and mid septum segment. 2.Normal appearance of the mitral valve. Mild mitral annular calcification. Trace mitral regurgitation. 3.Normal appearance of the tricuspid valve. Estimated peak PA systolic pressure 28 mmHg. There is mild tricuspid regurgitation. Electronically Signed By: Genaro Scott 23-Aug-2016 16:41:45 -0800 Patient Name: LYNSEY RYDER Study Date: 23-Aug-[id number]
[2016-08-23] MEDS: HYDROCODONE/APAP (5/325) TAB PO PRN (17:57)
[2016-08-23 19:04] VITALS: BP 135/66; PULSE 88
[2016-08-23 19:30] VITALS: BP 126/65; RESP 18
[2016-08-23] MEDS: ATORVASTATIN 20 MG TAB PO SCH (20:28)
[2016-08-23] MEDS: FAMOTIDINE 20 MG TAB PO SCH (20:28)
[2016-08-23] MEDS: morphine 2 MG INJ IV PRN (22:25)
[2016-08-24 05:41] LABS: BASOPHILS % 0.2 % (0.0-2.0); EOSINOPHILS # 0.5 10^3/ul (0.0-0.5); EOSINOPHILS % 6.3 % (0.0-7.0); HEMATOCRIT 33.5 % (37.0-47.0); LYMPHOCYTES # 0.7 10^3/ul (0.8-2.9); LYMPHOCYTES % 9.1 % (15.0-51.0); MEAN CORPUSCULAR HEMOGLOBIN 33.7 pg (29.0-33.0); MEAN CORPUSCULAR HGB CONC 32.9 g/dl (32.0-37.0); MEAN CORPUSCULAR VOLUME 102.5 fl (82.0-101.0); MEAN PLATELET VOLUME 9.9 fl (7.4-10.4); MONOCYTE # 0.4 10^3/ul (0.3-0.9); MONOCYTES % 5.8 % (0.0-11.0); NEUTROPHILS % 78.6 % (39.0-77.0); PLATELET COUNT 178 10^3/UL (140-440); RED BLOOD COUNT 3.27 10^6/ul (4.20-5.40); UNCORRECTED WBC 7.7 10^3/ul (4.8-10.8); WHITE BLOOD COUNT 7.7 10^3/ul (4.8-10.8)
[2016-08-24 05:45] LABS: POTASSIUM 4.2 mmol/L (3.5-5.1)
[2016-08-24 05:46] LABS: MAGNESIUM 1.9 mg/dl (1.7-2.5); PHOSPHORUS 2.9 mg/dl (2.5-4.9)
[2016-08-24 05:47] LABS: CREATININE 0.98 mg/dl (0.44-1.00)
[2016-08-24 05:48] LABS: CALCIUM 9.4 mg/dl (8.4-10.2)
[2016-08-24 06:19] LABS: CONDITION 1; LH ANALYZER COMMENTS 1; SUSPECT 1
[2016-08-24 07:19] VITALS: BP 129/61; RESP 22
[2016-08-24] MEDS: CHOLECALCIFEROL 1,000 UNIT TAB PO SCH (08:36)
[2016-08-24] MEDS: MULTIVITAMINS THERAPEUTIC TAB PO SCH (08:36)
[2016-08-24] MEDS: METOPROLOL 25 MG TAB PO SCH ×2 (08:36→20:27)
[2016-08-24] MEDS: HYDROCHLOROTHIAZIDE 12.5 MG CAP PO SCH (08:36)
[2016-08-24] MEDS: LOSARTAN 50 MG TAB PO SCH (08:37)
--- NOTE | 2016-08-24 12:14 | PN ---
Date/Time of Note Date/Time of Note DATE: 08/24/16 TIME: 12:13 Assessment/Plan VTE Prophylaxis VTE Prophylaxis Intervention: SCD's Lines/Catheters IV [facility] Saline Lock Urinary Cath still in place: No (NO PIRES) Assessment/Plan Chief Complaint/Hosp Course 1. Acute encephalopathy in a patient with possible underlying dementia versus delirium secondary to underlying urinary tract infection. The patient continues to have periods of confusion. The patient will be maintained on 1:1 supervision. The patient's brain imaging and cervical spine imaging have been negative. 2. Reported chest pain. Serial troponins negative. 2-D echocardiogram showing EF of 45%. Aspirin on hold because of recent scalp trauma. 3. Essential hypertension. Continue antihypertensives including p.r.n. antihypertensives for systolic blood pressure readings greater than 160 mmHg. 4. Dyslipidemia. Continue statin. Fasting lipid panel satisfactory. 5. Cardiomyopathy. Ejection fraction of 40-45%. Continue beta blockers and ARB's. 6. Urinary tract infection. Will start the patient on antibiotics. 7. Macrocytic anemia. Monitor H&H closely. 8. Status post fall. Brain imaging negative. Physical therapy evaluated the patient and the patient is stable for ambulation under supervision. 9. 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 Etiology unclear. Monitor closely. 10. Fluid, electrolytes and nutrition. Continue a regular diet. 11. Deep venous thrombosis prophylaxis with bilateral sequential compression devices. 12. Gastrointestinal prophylaxis: Histamine 2 receptor blockers. PLAN: Continue 1:1 sitter. The patient is not a safe candidate to be discharged home. The patient lives by herself. The patient does not have the capability to make decisions on her own. The patient has no immediate family members available. community worker on the case. The case was discussed with Dr. Nguyen. Problems: Subjective 24 Hr Interval Summary Free Text/Dictation The patient continues to have one-to-one sitter in place. Vital signs stable. Exam/Review of Systems Vital Signs Vitals Vital Signs Date Time Temp Pulse Resp B/P Pulse Ox O2 Delivery O2 Flow Rate FiO2 08/24/16 07:19 98.2 73 22 129/61 97 08/22/16 15:10 Room Air 08/22/16 08:00 2.0 Intake and Output 08/23/16 08/23/16 08/24/16 15:00 23:00 07:00 Intake Total 1545 ml 400 ml Balance 1545 ml 400 ml Exam GENERAL: This is a thin, frail-looking female lying in bed in no apparent distress. HEENT: Head normocephalic. There is a right scalp dressing above the right eyebrow. There is periorbital ecchymosis. ENT: Nasal septum is midline. Oral mucosa is dry. Poor dentition. NECK: Supple. No JVD noticed. RESPIRATORY: Bilaterally clear to auscultation. No adventitious breath sounds. No use of accessory muscles of respiration. CARDIAC: Regular rate and rhythm. No murmurs heard. ABDOMEN: Soft, nontender and nondistended. Bowel sounds positive in all 4 quadrants. GENITOURINARY: Deferred. EXTREMITIES: No cyanosis, no clubbing, no edema. Peripheral pulses are palpable. NEUROLOGIC: The patient is awake and alert. The patient is oriented x3. The patient has periods of forgetfulness. The patient moves all 4 extremities. PSYCHIATRIC: Delusions of paranoia and grandeur. Results Result Diagram: 08/24/16 0505 08/24/16 0505 Results 24 hrs Laboratory Tests Test 08/24/16 05:05 Anion Gap 14 Basophils # 0.0 Basophils % 0.2 Blood Morphology Comment Blood Urea Nitrogen 23 H Calcium Level 9.4 Carbon Dioxide Level 30 Chloride Level 102 Creatinine 0.98 Eosinophils # 0.5 Eosinophils % 6.3 Glucose Level 99 Hematocrit 33.5 L Hemoglobin 11.0 L Lymphocytes # 0.7 L Lymphocytes % 9.1 L Magnesium Level 1.9 Mean Corpuscular Hemoglobin 33.7 H Mean Corpuscular Hemoglobin Concent 32.9 Mean Corpuscular Volume 102.5 H Mean Platelet Volume 9.9 Monocytes # 0.4 Monocytes % 5.8 Neutrophils # 6.0 Neutrophils % 78.6 H Nucleated Red Blood Cells # 0.0 Nucleated Red Blood Cells % 0.0 Phosphorus Level 2.9 Platelet Count 178 # Potassium Level 4.2 Red Blood Count 3.27 L Red Cell Distribution Width 13.0 Sodium Level 142 White Blood Count 7.7 # Medications Medications Current Medications Ondansetron HCl (Zofran Inj) 4 mg Q6H PRN IV NAUSEA AND/OR VOMITING; Start at 16:30 Acetaminophen (Tylenol Tab) 650 mg Q6H PRN PO PAIN LEVEL 1-3 OR FEVER; Start at 16:30 Acetaminophen/ Hydrocodone Bitart (Holcomb (5/325)) 1 tab Q6H PRN PO MODERATE PAIN LEVEL 4-6 Last administered on 08/23/16 17:57; Admin Dose 1 TAB; Start at 16:30 Magnesium Hydroxide (Milk Of Mag) 30 ml DAILY PRN PO CONSTIPATION; Start at 16:30 Bisacodyl (Dulcolax) 5 mg DAILY PRN PO CONSTIPATION; Start 08/22/16 at 16:30 Famotidine (Pepcid) 20 mg HS PO Last administered on 08/23/16 20:28; Admin Dose 20 MG; Start 08/22/16 at 21:00 Lorazepam (Ativan) 0.5 mg Q6H PRN IV Anxiety; Start 08/22/16 at 16:30 Cholecalciferol (Vitamin D) 2,000 unit DAILY PO Last administered on 08/24/16 08:36; Admin Dose 2,000 UNIT; Start 08/23/16 at 09:00 Hydrochlorothiazide (Hydrochlorothiazide) 12.5 mg DAILY PO Last administered on 08/24/16 08:36; Admin Dose 12.5 MG; Start 08/23/16 at 09:00 Losartan Potassium (Cozaar) 100 mg DAILY PO Last administered on 08/24/16 08: 37; Admin Dose 100 MG; Start 08/23/16 at 09:00 Metoprolol Tartrate (Lopressor) 25 mg BID PO Last administered on 08/24/16 08: 36; Admin Dose 25 MG; Start 08/22/16 at 21:00 Multivitamins Therapeutic (Theragran) 1 tab DAILY PO Last administered on 08:36; Admin Dose 1 TAB; Start 08/23/16 at 09:00 Atorvastatin Calcium (Lipitor) 20 mg DAILY@21 PO Last administered on 20:28; Admin Dose 20 MG; Start 08/22/16 at 21:00 Influenza Virus Vaccine (Fluzone) 0.5 ml ONCE ONCE IM* ; Start 08/25/16 at 09:00 ; Stop 08/25/16 at 09:01 Morphine Sulfate (morphine) 2 mg Q4H PRN IV Chest Pain Last administered on 22:25; Admin Dose 2 MG; Start 08/23/16 at 03:00 Hydralazine HCl (Apresoline) 10 mg Q6H PRN IV SBP>160; Start 08/23/16 at 11:30 OSCAR GUILLEN NP Aug 24, 2016 12:14
[2016-08-24] MEDS: HYDROCODONE/APAP (5/325) TAB PO PRN ×2 (13:08→20:28)
[2016-08-24] MEDS: AMOXICILLIN 500 MG CAP PO SCH ×2 (14:35→22:24)
[2016-08-24 19:30] VITALS: BP 127/64; PULSE 80; RESP 18
[2016-08-24] MEDS: FAMOTIDINE 20 MG TAB PO SCH (20:28)
[2016-08-24] MEDS: ATORVASTATIN 20 MG TAB PO SCH (20:28)
[2016-08-24] MEDS: morphine 2 MG INJ IV PRN (22:27)
[2016-08-25] MEDS: morphine 2 MG INJ IV PRN (03:10)
[2016-08-25] MEDS: AMOXICILLIN 500 MG CAP PO SCH ×3 (06:16→21:33)
[2016-08-25] MEDS: HYDROCODONE/APAP (5/325) TAB PO PRN ×2 (06:17→16:15)
[2016-08-25 07:17] VITALS: BP 122/59; RESP 20
[2016-08-25] MEDS ORDERED: INFLUENZA VIRUS VACCINE 0.5 ML (DISPENSING) IM* ONE (09:00)
[2016-08-25] MEDS: METOPROLOL 25 MG TAB PO SCH ×2 (09:45→21:33)
[2016-08-25] MEDS: CHOLECALCIFEROL 1,000 UNIT TAB PO SCH (09:45)
[2016-08-25] MEDS: MULTIVITAMINS THERAPEUTIC TAB PO SCH (09:45)
[2016-08-25] MEDS: LOSARTAN 50 MG TAB PO SCH (09:46)
[2016-08-25] MEDS: HYDROCHLOROTHIAZIDE 12.5 MG CAP PO SCH (09:46)
--- NOTE | 2016-08-25 15:05 | PN ---
Date/Time of Note Date/Time of Note DATE: 08/25/16 TIME: 15:02 Assessment/Plan VTE Prophylaxis VTE Prophylaxis Intervention: SCD's Lines/Catheters IV Catheter Type (from [facility]): [facility] Urinary Cath still in place: No Assessment/Plan Chief Complaint/Hosp Course 1. Acute encephalopathy in a patient with possible underlying dementia versus delirium secondary to underlying urinary tract infection. The patient's brain imaging and cervical spine imaging have been negative. 2. Reported chest pain. Serial troponins negative. 2-D echocardiogram showing EF of 45%. Aspirin on hold because of recent scalp trauma. 3. Essential hypertension. Continue antihypertensives including p.r.n. antihypertensives for systolic blood pressure readings greater than 160 mmHg. 4. Dyslipidemia. Continue statin. Fasting lipid panel satisfactory. 5. Cardiomyopathy. Ejection fraction of 40-45%. Continue beta blockers and ARB's. 6. Urinary tract infection. Continue antibiotics. 7. Macrocytic anemia. Monitor H&H closely. 8. Status post fall. Brain imaging negative. Physical therapy evaluated the patient and the patient is stable for ambulation under supervision. 9. 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 Etiology unclear. Monitor closely. 10. Fluid, electrolytes and nutrition. Continue a regular diet. 11. Deep venous thrombosis prophylaxis with bilateral sequential compression devices. 12. Gastrointestinal prophylaxis: Histamine 2 receptor blockers. PLAN: The patient is not a safe candidate to be discharged home. The patient lives by herself. The patient does not have the capability to make decisions on her own. The patient has no immediate family members available. call worker person on the case. The patient needs placement to a long-term facility. The case was discussed with Dr. Nguyen. Problems: Subjective 24 Hr Interval Summary Free Text/Dictation The patient's one-to-one sitter has been discontinued. The patient appears more calm and cooperative. The patient was walking in the hallway under supervision. Exam/Review of Systems Vital Signs Vitals Vital Signs Date Time Temp Pulse Resp B/P Pulse Ox O2 Delivery O2 Flow Rate FiO2 08/25/16 07:17 98.5 73 20 122/59 100 08/25/16 02:21 2.0 08/24/16 19:30 Room Air Intake and Output 08/24/16 08/24/16 08/25/16 15:00 23:00 07:00 Intake Total 800 ml 300 ml Balance 800 ml 300 ml Exam GENERAL: This is a thin, frail-looking female lying in bed in no apparent distress. HEENT: Head normocephalic. There is a right scalp dressing above the right eyebrow. There is periorbital ecchymosis. ENT: Nasal septum is midline. Oral mucosa is dry. Poor dentition. NECK: Supple. No JVD noticed. RESPIRATORY: Bilaterally clear to auscultation. No adventitious breath sounds. No use of accessory muscles of respiration. CARDIAC: Regular rate and rhythm. No murmurs heard. ABDOMEN: Soft, nontender and nondistended. Bowel sounds positive in all 4 quadrants. GENITOURINARY: Deferred. EXTREMITIES: No cyanosis, no clubbing, no edema. Peripheral pulses are palpable. NEUROLOGIC: The patient is awake and alert. The patient is oriented x3. The patient has periods of forgetfulness. The patient moves all 4 extremities. PSYCHIATRIC: Delusions of paranoia and grandeur. Results Result Diagram: 08/24/16 0505 08/24/16 0505 Medications Medications Current Medications Ondansetron HCl (Zofran Inj) 4 mg Q6H PRN IV NAUSEA AND/OR VOMITING; Start at 16:30 Acetaminophen (Tylenol Tab) 650 mg Q6H PRN PO PAIN LEVEL 1-3 OR FEVER; Start at 16:30 Acetaminophen/ Hydrocodone Bitart ([place] (5/325)) 1 tab Q6H PRN PO MODERATE PAIN LEVEL 4-6 Last administered on 08/25/16 06:17; Admin Dose 1 TAB; Start at 16:30 Magnesium Hydroxide (Milk Of Mag) 30 ml DAILY PRN PO CONSTIPATION; Start at 16:30 Bisacodyl (Dulcolax) 5 mg DAILY PRN PO CONSTIPATION; Start 08/22/16 at 16:30 Famotidine (Pepcid) 20 mg HS PO Last administered on 08/24/16 20:28; Admin Dose 20 MG; Start 08/22/16 at 21:00 Lorazepam (Ativan) 0.5 mg Q6H PRN IV Anxiety; Start 08/22/16 at 16:30 Cholecalciferol (Vitamin D) 2,000 unit DAILY PO Last administered on 08/25/16 09:45; Admin Dose 2,000 UNIT; Start 08/23/16 at 09:00 Hydrochlorothiazide (Hydrochlorothiazide) 12.5 mg DAILY PO Last administered on 08/25/16 09:46; Admin Dose 12.5 MG; Start 08/23/16 at 09:00 Losartan Potassium (Cozaar) 100 mg DAILY PO Last administered on 08/25/16 09: 46; Admin Dose 100 MG; Start 08/23/16 at 09:00 Metoprolol Tartrate (Lopressor) 25 mg BID PO Last administered on 08/25/16 09: 45; Admin Dose 25 MG; Start 08/22/16 at 21:00 Multivitamins Therapeutic (Theragran) 1 tab DAILY PO Last administered on 09:45; Admin Dose 1 TAB; Start 08/23/16 at 09:00 Atorvastatin Calcium (Lipitor) 20 mg DAILY@21 PO Last administered on 20:28; Admin Dose 20 MG; Start 08/22/16 at 21:00 Morphine Sulfate (morphine) 2 mg Q4H PRN IV Chest Pain Last administered on 03:10; Admin Dose 2 MG; Start 08/23/16 at 03:00 Hydralazine HCl (Apresoline) 10 mg Q6H PRN IV SBP>160; Start 08/23/16 at 11:30 Amoxicillin (Amoxicillin) 500 mg Q8 PO Last administered on 08/25/16 13:18; Admin Dose 500 MG; Start 08/24/16 at 14:00 OSCAR GUILLEN NP Aug 25, 2016 15:05
--- NOTE | 2016-08-25 17:07 | PDOCDIS ---
Discharge Instructions DIAGNOSIS Discharge Diagnosis: Acute delirium CONDITION Patient Condition: Stable HOME CARE INSTRUCTIONS: Diet Instructions: RegularSpecial Diet: regular OTHER ORDERS: Other Orders: 1. Medications as per medication reconciliation. 2. Regular diet as tolerated. 3. Activities under supervision. OSCAR GUILLEN NP Aug 25, 2016 17:07
[2016-08-25] MEDS ORDERED: LORAZEPAM 1 MG TAB PO ONE (18:30)
[2016-08-25 19:51] VITALS: BP 105/59; RESP 16
[2016-08-25] MEDS: ATORVASTATIN 20 MG TAB PO SCH (21:33)
[2016-08-25] MEDS: FAMOTIDINE 20 MG TAB PO SCH (21:33)
[2016-08-26] MEDS: HYDROCODONE/APAP (5/325) TAB PO PRN (00:57)
[2016-08-26] MEDS: AMOXICILLIN 500 MG CAP PO SCH ×3 (06:00→21:39)
[2016-08-26] MEDS: CHOLECALCIFEROL 1,000 UNIT TAB PO SCH ×3 (09:00→15:27)
[2016-08-26] MEDS: HYDROCHLOROTHIAZIDE 12.5 MG CAP PO SCH ×2 (09:00→09:25)
[2016-08-26] MEDS: METOPROLOL 25 MG TAB PO SCH ×3 (09:00→21:39)
[2016-08-26] MEDS: MULTIVITAMINS THERAPEUTIC TAB PO SCH ×3 (09:00→15:21)
[2016-08-26] MEDS: LOSARTAN 50 MG TAB PO SCH ×2 (09:00→09:25)
[2016-08-26 09:48] VITALS: BP 141/88; RESP 20
--- NOTE | 2016-08-26 10:11 | PN ---
Date/Time of Note Date/Time of Note DATE: 08/26/16 TIME: 10:09 Assessment/Plan VTE Prophylaxis VTE Prophylaxis Intervention: SCD's Lines/Catheters [facility] Urinary Cath still in place: No Assessment/Plan Chief Complaint/Hosp Course 1. Acute encephalopathy in a patient with possible underlying dementia versus delirium secondary to underlying urinary tract infection. The patient's brain imaging and cervical spine imaging have been negative. 2. Reported chest pain. Serial troponins negative. 2-D echocardiogram showing EF of 45%. Aspirin on hold because of recent scalp trauma. 3. Essential hypertension. Continue antihypertensives including p.r.n. antihypertensives for systolic blood pressure readings greater than 160 mmHg. 4. Dyslipidemia. Continue statin. Fasting lipid panel satisfactory. 5. Cardiomyopathy. Ejection fraction of 40-45%. Continue beta blockers and ARB's. 6. Urinary tract infection. Continue antibiotics. 7. Macrocytic anemia. Monitor H&H closely. 8. Status post fall. Brain imaging negative. Physical therapy evaluated the patient and the patient is stable for ambulation under supervision. 9. 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 Etiology unclear. Monitor closely. 10. Fluid, electrolytes and nutrition. Continue a regular diet. 11. Deep venous thrombosis prophylaxis with bilateral sequential compression devices. 12. Gastrointestinal prophylaxis: Histamine 2 receptor blockers. PLAN: The patient is not a safe candidate to be discharged home. The patient lives by herself. The patient does not have the capability to make decisions on her own. The patient has no immediate family members available. formula room worker on the case. The patient needs placement to a [facility] facility. The case was discussed with Dr. Nguyen. Problems: Subjective 24 Hr Interval Summary Free Text/Dictation The patient had discharge orders to be discharged to a [facility] facility on 08/25/2016. However, the patient refused to go stating that the patient wants to go home. The patient continues to be agitated and trying to elope. Hence the patient has a one-to-one sitter in place currently. Exam/Review of Systems Vital Signs Vitals Vital Signs Date Time Temp Pulse Resp B/P Pulse Ox O2 Delivery O2 Flow Rate FiO2 08/26/16 09:48 97.6 72 20 141/88 97 08/26/16 06:07 2.0 08/24/16 19:30 Room Air Intake and Output 08/25/16 08/25/16 08/26/16 15:00 23:00 07:00 Intake Total 1080 ml 400 ml Balance 1080 ml 400 ml Exam GENERAL: This is a thin, frail-looking female lying in bed in no apparent distress. HEENT: Head normocephalic. There is a right scalp dressing above the right eyebrow. There is periorbital ecchymosis. ENT: Nasal septum is midline. Oral mucosa is dry. Poor dentition. NECK: Supple. No JVD noticed. RESPIRATORY: Bilaterally clear to auscultation. No adventitious breath sounds. No use of accessory muscles of respiration. CARDIAC: Regular rate and rhythm. No murmurs heard. ABDOMEN: Soft, nontender and nondistended. Bowel sounds positive in all 4 quadrants. GENITOURINARY: Deferred. EXTREMITIES: No cyanosis, no clubbing, no edema. Peripheral pulses are palpable. NEUROLOGIC: The patient is lethargic. Oriented x1. The patient has periods of forgetfulness. The patient moves all 4 extremities. Results Result Diagram: 08/24/16 0505 08/24/16 0505 Medications Medications Current Medications Ondansetron HCl (Zofran Inj) 4 mg Q6H PRN IV NAUSEA AND/OR VOMITING; Start at 16:30 Acetaminophen (Tylenol Tab) 650 mg Q6H PRN PO PAIN LEVEL 1-3 OR FEVER; Start at 16:30 Acetaminophen/ Hydrocodone Bitart ([place] (5/325)) 1 tab Q6H PRN PO MODERATE PAIN LEVEL 4-6 Last administered on 08/26/16 00:57; Admin Dose 1 TAB; Start at 16:30 Magnesium Hydroxide (Milk Of Mag) 30 ml DAILY PRN PO CONSTIPATION; Start at 16:30 Bisacodyl (Dulcolax) 5 mg DAILY PRN PO CONSTIPATION; Start 08/22/16 at 16:30 Famotidine (Pepcid) 20 mg HS PO Last administered on 08/25/16 21:33; Admin Dose 20 MG; Start 08/22/16 at 21:00 Lorazepam (Ativan) 0.5 mg Q6H PRN IV Anxiety Last administered on 08/26/16 04: 24; Admin Dose 0.5 MG; Start 08/22/16 at 16:30 Cholecalciferol (Vitamin D) 2,000 unit DAILY PO Last administered on 08/25/16 09:45; Admin Dose 2,000 UNIT; Start 08/23/16 at 09:00 Hydrochlorothiazide (Hydrochlorothiazide) 12.5 mg DAILY PO Last administered on 08/25/16 09:46; Admin Dose 12.5 MG; Start 08/23/16 at 09:00 Losartan Potassium (Cozaar) 100 mg DAILY PO Last administered on 08/25/16 09: 46; Admin Dose 100 MG; Start 08/23/16 at 09:00 Metoprolol Tartrate (Lopressor) 25 mg BID PO Last administered on 08/25/16 21: 33; Admin Dose 25 MG; Start 08/22/16 at 21:00 Multivitamins Therapeutic (Theragran) 1 tab DAILY PO Last administered on 09:45; Admin Dose 1 TAB; Start 08/23/16 at 09:00 Atorvastatin Calcium (Lipitor) 20 mg DAILY@21 PO Last administered on 21:33; Admin Dose 20 MG; Start 08/22/16 at 21:00 Morphine Sulfate (morphine) 2 mg Q4H PRN IV Chest Pain Last administered on 03:10; Admin Dose 2 MG; Start 08/23/16 at 03:00 Hydralazine HCl (Apresoline) 10 mg Q6H PRN IV SBP>160; Start 08/23/16 at 11:30 Amoxicillin (Amoxicillin) 500 mg Q8 PO Last administered on 08/25/16 21:33; Admin Dose 500 MG; Start 08/24/16 at 14:00 OSCAR GUILLEN NP Aug 26, 2016 10:11
[2016-08-26] MEDS: D5W-0.45 NACL + KCL 20 MEQ 1,000 ML IV SCH (11:16)
[2016-08-26] MEDS: morphine 2 MG INJ IV PRN ×2 (16:05→21:39)
[2016-08-26 19:17] VITALS: BP 177/95; RESP 20
[2016-08-26 21:36] VITALS: BP 122/65; PULSE 76
[2016-08-26] MEDS: FAMOTIDINE 20 MG TAB PO SCH (21:38)
[2016-08-26] MEDS: ATORVASTATIN 20 MG TAB PO SCH (21:39)
[2016-08-27] MEDS: D5W-0.45 NACL + KCL 20 MEQ 1,000 ML IV SCH (03:40)
[2016-08-27] MEDS: AMOXICILLIN 500 MG CAP PO SCH ×3 (05:21→20:12)
[2016-08-27] MEDS: HYDROCODONE/APAP (5/325) TAB PO PRN ×3 (05:21→18:09)
[2016-08-27 07:15] VITALS: BP 122/59; RESP 20
[2016-08-27] MEDS: MULTIVITAMINS THERAPEUTIC TAB PO SCH (08:44)
[2016-08-27] MEDS: LOSARTAN 50 MG TAB PO SCH (08:44)
[2016-08-27] MEDS: HYDROCHLOROTHIAZIDE 12.5 MG CAP PO SCH (08:44)
[2016-08-27] MEDS: METOPROLOL 25 MG TAB PO SCH ×2 (08:45→20:13)
[2016-08-27] MEDS: CHOLECALCIFEROL 1,000 UNIT TAB PO SCH (08:45)
--- NOTE | 2016-08-27 10:23 | PN ---
Date/Time of Note Date/Time of Note DATE: 08/27/16 TIME: 10:20 Assessment/Plan VTE Prophylaxis VTE Prophylaxis Intervention: SCD's Lines/Catheters IV Catheter Type (from [facility]): [facility] Urinary Cath still in place: No Assessment/Plan Chief Complaint/Hosp Course 1. Acute encephalopathy in a patient with possible underlying dementia versus delirium secondary to underlying urinary tract infection. The patient's brain imaging and cervical spine imaging have been negative. 2. Reported chest pain. Serial troponins negative. 2-D echocardiogram showing EF of 45%. Aspirin on hold because of recent scalp trauma. 3. Essential hypertension. Continue antihypertensives including p.r.n. antihypertensives for systolic blood pressure readings greater than 160 mmHg. 4. Dyslipidemia. Continue statin. Fasting lipid panel satisfactory. 5. Cardiomyopathy. Ejection fraction of 40-45%. Continue beta blockers and ARB's. 6. Urinary tract infection. Continue antibiotics. 7. Macrocytic anemia. Monitor H&H closely. 8. Status post fall. Brain imaging negative. Physical therapy evaluated the patient and the patient is stable for ambulation under supervision. 9. 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 Etiology unclear. Monitor closely. 10. Fluid, electrolytes and nutrition. Continue a regular diet. 11. Deep venous thrombosis prophylaxis with bilateral sequential compression devices. 12. Gastrointestinal prophylaxis: Histamine 2 receptor blockers. PLAN: The patient is not a safe candidate to be discharged home. The patient lives by herself. The patient does not have the capability to make decisions on her own. The patient has no immediate family members available. pantry worker on the case. The patient needs placement to a [facility] facility. The case was discussed with Dr. Nguyen. Problems: Subjective 24 Hr Interval Summary Free Text/Dictation Continues to have paranoid delusions. The patient has a 1:1 sitter. Exam/Review of Systems Vital Signs Vitals Vital Signs Date Time Temp Pulse Resp B/P Pulse Ox O2 Delivery O2 Flow Rate FiO2 08/27/16 07:15 98.4 71 20 122/59 100 08/26/16 14:28 2.0 08/24/16 19:30 Room Air Intake and Output 08/26/16 08/26/16 08/27/16 15:00 23:00 07:00 Intake Total 1060 ml 470 ml Output Total 800 ml Balance 260 ml 470 ml Exam GENERAL: This is a thin, frail-looking female lying in bed in no apparent distress. HEENT: Head normocephalic. There is a right scalp dressing above the right eyebrow. There is periorbital ecchymosis. ENT: Nasal septum is midline. Oral mucosa is dry. Poor dentition. NECK: Supple. No JVD noticed. RESPIRATORY: Bilaterally clear to auscultation. No adventitious breath sounds. No use of accessory muscles of respiration. CARDIAC: Regular rate and rhythm. No murmurs heard. ABDOMEN: Soft, nontender and nondistended. Bowel sounds positive in all 4 quadrants. GENITOURINARY: Deferred. EXTREMITIES: No cyanosis, no clubbing, no edema. Peripheral pulses are palpable. NEUROLOGIC: The patient is lethargic. Oriented x3. The patient moves all 4 extremities. Results Result Diagram: 08/24/16 0505 08/24/16 0505 Medications Medications Current Medications Ondansetron HCl (Zofran Inj) 4 mg Q6H PRN IV NAUSEA AND/OR VOMITING; Start at 16:30 Acetaminophen (Tylenol Tab) 650 mg Q6H PRN PO PAIN LEVEL 1-3 OR FEVER; Start at 16:30 Acetaminophen/ Hydrocodone Bitart ([place] (5/325)) 1 tab Q6H PRN PO MODERATE PAIN LEVEL 4-6 Last administered on 08/27/16 05:21; Admin Dose 1 TAB; Start at 16:30 Magnesium Hydroxide (Milk Of Mag) 30 ml DAILY PRN PO CONSTIPATION; Start at 16:30 Bisacodyl (Dulcolax) 5 mg DAILY PRN PO CONSTIPATION; Start 08/22/16 at 16:30 Famotidine (Pepcid) 20 mg HS PO Last administered on 08/26/16 21:38; Admin Dose 20 MG; Start 08/22/16 at 21:00 Cholecalciferol (Vitamin D) 2,000 unit DAILY PO Last administered on 08/27/16 08:45; Admin Dose 2,000 UNIT; Start 08/23/16 at 09:00 Hydrochlorothiazide (Hydrochlorothiazide) 12.5 mg DAILY PO Last administered on 08/27/16 08:44; Admin Dose 12.5 MG; Start 08/23/16 at 09:00 Losartan Potassium (Cozaar) 100 mg DAILY PO Last administered on 08/27/16 08: 44; Admin Dose 100 MG; Start 08/23/16 at 09:00 Metoprolol Tartrate (Lopressor) 25 mg BID PO Last administered on 08/27/16 08: 45; Admin Dose 25 MG; Start 08/22/16 at 21:00 Multivitamins Therapeutic (Theragran) 1 tab DAILY PO Last administered on 08:44; Admin Dose 1 TAB; Start 08/23/16 at 09:00 Atorvastatin Calcium (Lipitor) 20 mg DAILY@21 PO Last administered on 21:39; Admin Dose 20 MG; Start 08/22/16 at 21:00 Morphine Sulfate (morphine) 2 mg Q4H PRN IV Chest Pain Last administered on 21:39; Admin Dose 2 MG; Start 08/23/16 at 03:00 Hydralazine HCl (Apresoline) 10 mg Q6H PRN IV SBP>160; Start 08/23/16 at 11:30 Amoxicillin 500 mg 500 mg Q8 PO Last administered on 08/27/16 05:21; Admin Dose 500 MG; Start 08/24/16 at 14:00 Potassium Chloride/Dextrose/ Sod Cl (D5-1/2ns + KCl 20 Meq) 1,000 ml @ 60 mls/ hr [id number] IV Last administered on 08/26/16 11:16; Admin Dose 60 MLS/HR; Start 08/26/16 at 11:00 OSCAR GUILLEN NP Aug 27, 2016 10:23
[2016-08-27] MEDS ORDERED: LORAZEPAM 0.5 MG TAB PO ONE (15:00)
[2016-08-27 20:06] VITALS: BP 117/71; RESP 16
[2016-08-27] MEDS: ATORVASTATIN 20 MG TAB PO SCH (20:12)
[2016-08-27] MEDS: FAMOTIDINE 20 MG TAB PO SCH (20:12)
[2016-08-28] MEDS: AMOXICILLIN 500 MG CAP PO SCH ×2 (06:25→14:17)
[2016-08-28 08:09] VITALS: BP_SYST 109; BP_SYST 116; BP_DIAS 56; BP_DIAS 61; RESP 24
[2016-08-28] MEDS: MULTIVITAMINS THERAPEUTIC TAB PO SCH (08:45)
[2016-08-28] MEDS: LOSARTAN 50 MG TAB PO SCH (08:45)
[2016-08-28] MEDS: CHOLECALCIFEROL 1,000 UNIT TAB PO SCH (08:45)
[2016-08-28] MEDS: HYDROCHLOROTHIAZIDE 12.5 MG CAP PO SCH (08:46)
[2016-08-28] MEDS: METOPROLOL 25 MG TAB PO SCH (08:46)
[2016-08-28] MEDS ORDERED: ALPRAZOLAM 0.25 MG TAB PO ONE (10:30)
[2016-08-28] MEDS ORDERED: LORAZEPAM 2 MG INJ IV PRN (11:00)
[2016-08-28] MEDS ORDERED: ALPRAZOLAM 0.25 MG TAB PO SCH (14:00)
--- NOTE | 2016-08-28 14:36 | DS ---
Date/Time of Note Date/Time of Note DATE: 08/28/16 TIME: 14:31 Discharge Summary Admission/Discharge Info Admit Date/Time Aug 25, 2016 at 15:01 Discharge Date/Time Hospital Course This is an 86-year-old female with history of hypertension, dyslipidemia, underlying dementia, who came to [facility] after she reportedly had chest pain after conflict with mid level project manager. Patient's account of medical history and what transpired were not consistent. Was reported that she did have a fall at home. She reported that she tripped and fell down. Patient also did have questionable reported one time stating "I just called the police because there is somebody watching the and glistening continue with the device edema bathroom". Patient regarding this was brought to [facility] for further evaluation. Upon examination she did have CT scan of her brain that wasn't a for any acute findings. She did have laceration on right frontal portion of her forehead. We did continue with wound care. Patient on further lab work was found to have UTI. She was placed on appropriate antibiotics as well. Encephalopathy likely with an exacerbation of her dementia versus secondary to underlying UTI. She was otherwise optimized medically. She did have show troponins drawn for her reported chest pain which were all essentially negative and she did have echocardiogram with ejection fraction of 45%. We did continue to optimize her on her cardiovascular medications. She was continued on antihypertensives for hypertension and statin for dyslipidemia. She was also place on antibiotics for her UTI. Patient did have some paranoia and also grandiose delusions. After discussion with aids social worker and multidisciplinary team, patient was not a candidate to be discharged home safely. We did discuss this at length with the patient. Case management was involved. We did get patient for transfer to snf facility. The plan of care was discussed with patient. On the day of discharge patient was in stable condition. Discussed plan of care with Dr. Page Discharge process time is 40 minutes [facility] Meds Reported Medications Acetaminophen with Codeine (Acetaminophen-Cod #3 Tablet) 1 Each Tablet, 1 TAB PO Q4 Y for PAIN, #7 TAB TYLENOL #4 08/22/16 Aspirin-Dipyridamole* (Aggrenox*) 25-200 Mg Cpmp.12hr, 1 CAP PO BID, CAP 08/22/16 Aspirin (Low Dose Aspirin) 81 Mg Tablet.dr, 81 MG PO DAILY, #30 TAB 08/22/16 Calcium Carbonate-Vitamin D3 (Calcium 600 + D Softgel) 1 Each Capsule, 1 CAP PO DAILY, CAP 08/22/16 Docusate Sodium* (Doc-Q-Lace*) 100 Mg Capsule, 100 MG PO BID Y for CONSTIPATION , CAP 08/22/16 Losartan Potassium* (Losartan Potassium*) 100 Mg Tablet, 100 MG PO DAILY, TAB 08/22/16 Metoprolol Tartrate* (Lopressor*) 25 Mg Tab, 25 MG PO BID, #60 TAB 08/22/16 Omeprazole* (Omeprazole*) 40 Mg Capsule.dr, 40 MG PO DAILY, #30 CAP 08/22/16 Simvastatin* (Zocor*) 40 Mg Tablet, 40 MG PO QHS, #30 TAB 08/22/16 Nitroglycerin* (Nitrostat*) 0.4 Mg Tab.subl, 0.4 MG SL Q5MIN Y for CHEST PAIN, BOTTLE 08/22/16 Multivitamins* (Theragran*) 1 Tab Tab, 1 TAB PO DAILY, TAB 08/22/16 Loratadine* (Loratadine*) 10 Mg Tablet, 10 MG PO DAILY, #30 TAB 08/22/16 Hydrochlorothiazide* (Hydrochlorothiazide*) 12.5 Mg Tablet, 12.5 MG PO DAILY, # 30 TAB 08/22/16 Cholecalciferol* (Vitamin D3*) 1,000 Unit Tablet, 2000 UNIT PO DAILY, TAB 08/22/16 Azelastine/Fluticasone (DYMISTA NASAL SPRAY) 23 Gm [place].pump, 1 SPRAY NASAL BID , #1 BOTTLE TO EACH NOSTRIL 08/22/16 Albuterol Sulfate* (Proair HFA*) 8.5 Gm Hfa.aer.ad, 2 PUFF INH Q4H Y for WHEEZING AND SOB, #1 INHALER 08/22/16 Follow-up Plan CONDITION Patient Condition: Stable HOME CARE INSTRUCTIONS: Diet Instructions: RegularSpecial Diet: regular OTHER ORDERS: Other Orders: 1. Medications as per medication reconciliation. 2. Regular diet as tolerated. 3. Activities under supervision. DANIEL NOLASCO Aug 28, 2016 14:36
== END 2016-08-28 15:36 | DRG 689 ==
LOC: E/R 05:02 → MS2 12:46 → INTOOBSV 12:46 → MS2 23:25 → OBSVTOIN 08-25 15:01 → MS2 08-26 19:10
PROVIDERS: ADMIT Family Medicine; ATTEND Family Medicine
DX: N39.0 Urinary tract infection, site not specified (principal); G93.40 Encephalopathy, unspecified; S09.90XA Unspecified injury of head, initial encounter; D53.9 Nutritional anemia, unspecified; Z78.1 Physical restraint status; I10 Essential (primary) hypertension; S01.81XA Laceration without foreign body of other part of head, initial encounter; E78.5 Hyperlipidemia, unspecified; F22 Delusional disorders; W18.30XA Fall on same level, unspecified, initial encounter; Z91.81 History of falling; Y92.238 Other place in hospital as the place of occurrence of the external cause; R07.9 Chest pain, unspecified
CPT/HCPCS: 36415; 70450; 70486; 70496; 70498; 71010; 72125; 80048; 80053; 80061; 80306; 80307; 81001; 81003; 82550; 82553; 82728; 83036; 83540; 83735; 83880; 84100; 84436; 84479; 84484; 85025; 85610; 85730; 87086; 90471; 90686; 90715; 93005; 93306; 96374; 96375; 97162; 99217; G0008; G0378; J1630; J2060; J2270; J3480; J7070; Q9967